=== PATIENT | male | born 1960 | race Caucasian/White ===

== ENCOUNTER 2017-02-27 19:40 | Inpatient (IN) | payer SELFPAY ==
--- NOTE | ~2017-02-27 | HP ---
History And Physical [facility] [address] [place]. [address] NAME: FREDO VELOZ : 58 STATUS : ADM Daija PAT#: [id number] AGE: 56 ADM/REG DATE : 02/27/17 MR#: [id number] REPORT SERV DATE: 02/28/17 DICTATED BY: VANIA BECKETT JR. DATE: 02/28/17 REPORT STATUS : Draft TRANSCRIBED BY: MODPortillo DATE: 02/28/17 DATE OF ADMISSION: 02/27/2017 CHIEF COMPLAINT: Abdominal pain. HISTORY OF PRESENT ILLNESS: This is a 56-year-old male who presented to the emergency department at [facility] with complaints of 1-day history of abdominal pain. This began in the central abdomen and became localized in the right lower quadrant associated with some fever, nausea, and anorexia. He was seen in the emergency room where he had tenderness in the right lower quadrant and then had a CT scan which demonstrated evidence of appendicitis. He was admitted, given IV antibiotics and IV fluids. He has persistent pain in the right lower quadrant. PAST MEDICAL HISTORY: Remarkable for history of hypertension, hypercholesterolemia. He has had previous tonsillectomy and knee surgery. He has a history of significant GI problems. SOCIAL HISTORY: He is . He does not smoke or drink. FAMILY HISTORY: Remarkable for hypertension. REVIEW OF SYSTEMS: He has had fever. HEENT: Negative. NEUROLOGIC: Negative. SKIN: Negative. RESPIRATORY: Negative. CV: Negative. GI: As above. : Negative. MUSCULOSKELETAL: Negative. ENDOCRINE: Negative. HEMATOLOGIC: Negative. IMMUNOLOGIC: Negative. PSYCHIATRIC: Negative. PHYSICAL EXAMINATION: GENERAL: Exam shows a middle-aged male, who is in mild distress. HEENT: The head and neck exam shows pupils are equal and round. There were no icteric changes. Mucous membranes are dry. NECK: Supple. There is no mass or thyromegaly. LUNGS: Clear bilaterally. CARDIOVASCULAR: Exam shows normal S1, S2 without murmur. ABDOMEN: The abdomen is tender in the right lower quadrant with exquisite tenderness. EXTREMITIES: Show no clubbing, cyanosis, or edema. NEUROLOGIC: Alert and oriented. No focal findings. Appropriate affect. IMPRESSION: Abdominal pain, all findings consistent with acute appendicitis. PLAN: The patient has not improved any with antibiotics and fluids. We will proceed with laparoscopic appendectomy today. Details of risks and procedure have been discussed. The History And Physical [facility] [address] [place] [id number] NAME: FREDO VELOZ : 58 STATUS : ADM Daija PAT#: [id number] AGE: 56 ADM/REG DATE : 02/27/17 MR#: [id number] REPORT SERV DATE: 02/28/17 DICTATED BY: VANIA BECKETT JR. DATE: 02/28/17 REPORT STATUS : Draft TRANSCRIBED BY: ANETTEL DATE: 02/28/17 patient's family understand and agree. MIHAI/DRAKE Vania Beckett Jr., M.D. / [id number] CC: Vania Beckett Jr., M.D.
--- NOTE | ~2017-02-27 | OP ---
Record Of Operation [facility] [address] [place]. [address] NAME: FREDO VELOZ : 58 STATUS : ADM Daija PAT#: [id number] AGE: 56 ADM/REG DATE : 02/27/17 MR#: [id number] REPORT SERV DATE: 02/28/17 DICTATED BY: VANIA LAMAS JR. DATE: 02/28/17 REPORT STATUS : Draft TRANSCRIBED BY: MODL DATE: 02/28/17 DATE OF PROCEDURE: 02/28/2017 SURGEON: Vania Lamas M.D. BASKET HAND WEAVER: Chapincito Reese. PROCEDURE: Laparoscopic appendectomy. PREOPERATIVE DIAGNOSIS: Acute appendicitis. POSTOPERATIVE DIAGNOSIS: Acute appendicitis. ANESTHESIA: General. INDICATIONS: The patient has presented with acute abdominal pain localized to the right lower quadrant. Imaging shows appendicitis and appendectomy is indicated. FINDINGS: On laparoscopic examination of the abdomen, there is evidence of acute inflammation to the gallbladder with no evidence of any perforation. There was necrosis near the base. This was removed successfully and no significant findings were encountered. DESCRIPTION OF PROCEDURE: With adequate general anesthesia, the patient was placed in the supine position. Dickens catheter was placed. The abdomen was prepped and draped sterilely. 0.5% Marcaine was used for local infiltration of all trocar sites. An infraumbilical incision was made. The dissection was carried down sharply through the subcutaneous tissues. The fascia and peritoneum were opened. The peritoneal cavity was entered. A balloon-tipped trocar was introduced in the abdomen and the abdomen was insufflated with CO2. The laparoscope was introduced with the above-noted findings. Under direct vision, a 5 mm trocar was placed in the suprapubic and still having 10/12 on the right subcostal. The appendix was identified. Adhesions were taken off and with blunt dissection securing bleeders with electrocautery. Then, the mesoappendix was divided with several firings of the endoscopic MIMI with vascular load. This enabled visualization of the appendix at its base and the cecum was divided with a regular load Endo MIMI. The appendix was placed in an Endopouch and extracted and submitted to Pathology. Additional bleeding was controlled with clips. The area was irrigated thoroughly with saline. There was no evidence of any bleeding and all fluid pockets were aspirated. Trocars were removed under direct vision. The umbilical and right upper quadrant sites were closed at the fascial layer with figure-of eight 0 PDS and all wounds were then closed with dermal Monocryl. Sterile dressings were applied. ESTIMATED BLOOD LOSS FOR THE PROCEDURE: Was 30 mL. JG/MODL Record Of Operation [address] [place]. [address] NAME: FREDO VELOZ : 58 STATUS : ADM Daija PAT#: [id number] AGE: 56 ADM/REG DATE : 02/27/17 MR#: [id number] REPORT SERV DATE: 02/28/17 DICTATED BY: VANIA LAMAS JR. DATE: 02/28/17 REPORT STATUS : Draft TRANSCRIBED BY: DRAKE DATE: 02/28/17 Vania Lamas Jr., M.D. / [id number] CC: Vania Lamas Jr., M.D.
[2017-02-27 20:58] LABS: BASOPHILS 0.1 %; BASOPHILS ABSOLUTE 0.01 10/3/uL (0.0-0.16); EOSINOPHILS 0.2 %; EOSINOPHILS ABSOLUTE 0.02 10/3/uL (0.0-0.53); ER CBC TAT 0 Hrs 07 Mins; HEMATOCRIT 45.7 % (40.0-51.0); HEMOGLOBIN 15.7 g/dL (13.6-17.8); IMMATURE GRANULOCYTES 0.1 %; IMMATURE GRANULOCYTES ABSOLUTE 0.01 10/3/uL (0.0-0.11); LYMPHOCYTES 8.2 %; LYMPHOCYTES ABSOLUTE 0.82 10/3/uL (0.67-4.30); MANUAL DIFF NO %; MEAN CORPUS HGB CONC 34.4 g/dL (32.0-36.0); MEAN CORPUSCULAR HEMOGLOB 32.8 pg (26.0-34.0); MEAN CORPUSCULAR VOLUME 95.6 fL (80-100); MEAN PLATELET VOLUME 9.7 fL (9.2-13.0); MONOCYTES 1.7 %; MONOCYTES ABSOLUTE 0.17 10/3/uL (0.21-1.20); NEUTROPHILS 89.7 %; PLATELET COUNT 247 10/3/uL (150-400); RBC DISTRIBUTION WIDTH 12.5 % (12.0-16.0); RED CELL COUNT 4.78 10/6/uL (4.7-6.1)
[2017-02-27 21:04] LABS: ASCORBIC ACID (UR NOT ORDER) NEG (NEG); BILIRUBIN, URINE NEGATIVE (NEG); ER URINALYSIS TAT 0 Hrs 13 Mins; KETONE, URINE TRACE MG/DL (NEG); LEUKOCYTE ESTERASE(NOT OR NEG (NEG); NITRITE (URINE) NEG (NEG); WBC (NOT ORDERED) (RFLEX) < 1 (0-5)
[2017-02-27 21:14] LABS: A/G RATIO 1.4 (0.7-1.9); ALBUMIN 4.3 G/DL (3.5-5.0); ALKALINE PHOSPHATASE 67 U/L (45-117); BUN (BLOOD UREA NITROGEN) 13 MG/DL (6-23); CHLORIDE, SERUM 103 MMOL/L (96-112); CO2 (CARBON DIOXIDE) 29 MMOL/L (24-34); CREATININE 0.94 MG/DL (0.70-1.30); GFR AFRICAN AMERICAN 104 ML/MIN (>=60); GFR NON AFRICAN AMERICAN 90 ML/MIN (>=60); GLOBULIN 3.1 G/DL (2.5-4.1); GLUCOSE, SERUM 117 MG/DL (60-99); SGOT(AST) 18 U/L (5-40); SGPT(ALT) 29 U/L (5-65); SODIUM, SERUM 137 MMOL/L (135-148); TOTAL BILIRUBIN 2.5 MG/DL (0-1.2); TOTAL PROTEIN 7.4 G/DL (6.0-8.5)
[2017-02-28] MEDS ORDERED: PRAVACHOL40 MG PO (01:14)
[2017-02-28] MEDS ORDERED: ASAB PO (01:14)
[2017-02-28] MEDS ORDERED: COZ50 PO (01:14)
[2017-02-28] MEDS ORDERED: VISINE-A EYE AL15 ML OPH (01:15)
[2017-02-28] MEDS ORDERED: NEXIUM20 M1 PO (01:16)
[2017-02-28] MEDS ORDERED: VITAMIN D31000 UNIT PO (01:16)
[2017-03-01 07:26] LABS: BASOPHILS 0.2 %; BASOPHILS ABSOLUTE 0.01 10/3/uL (0.0-0.16); EOSINOPHILS 0 %; HEMOGLOBIN 12.7 g/dL (13.6-17.8); IMMATURE GRANULOCYTES 0.2 %; IMMATURE GRANULOCYTES ABSOLUTE 0.01 10/3/uL (0.0-0.11); LYMPHOCYTES 12.9 %; LYMPHOCYTES ABSOLUTE 0.82 10/3/uL (0.67-4.30); MEAN CORPUS HGB CONC 33.5 g/dL (32.0-36.0); MEAN CORPUSCULAR HEMOGLOB 32.8 pg (26.0-34.0); MEAN CORPUSCULAR VOLUME 97.9 fL (80-100); MEAN PLATELET VOLUME 9.6 fL (9.2-13.0); MONOCYTES 12.1 %; MONOCYTES ABSOLUTE 0.77 10/3/uL (0.21-1.20); NEUTROPHILS 74.6 %; NEUTROPHILS ABSOLUTE 4.74 10/3/uL (2.02-8.40); PLATELET COUNT 202 10/3/uL (150-400); RBC DISTRIBUTION WIDTH 12.8 % (12.0-16.0); RED CELL COUNT 3.87 10/6/uL (4.7-6.1); WHITE BLOOD CELLS 6.4 10/3/uL (4.5-10.5)
[2017-03-01 07:29] LABS: HEMATOCRIT 37.9 % (40.0-51.0); MANUAL DIFF NO %
[2017-03-01 07:34] LABS: BUN (BLOOD UREA NITROGEN) 14 MG/DL (6-23); CALCIUM, SERUM 8.6 MG/DL (8.5-10.4); CHLORIDE, SERUM 107 MMOL/L (96-112); CO2 (CARBON DIOXIDE) 29 MMOL/L (24-34); CREATININE 0.91 MG/DL (0.70-1.30); GFR AFRICAN AMERICAN 108 ML/MIN (>=60); GFR NON AFRICAN AMERICAN 93 ML/MIN (>=60); GLUCOSE, SERUM 122 MG/DL (60-99); PHOSPHORUS, SERUM 2.7 MG/DL (2.5-4.5); POTASSIUM, SERUM 4.1 MMOL/L (3.5-5.3); SGOT(AST) 15 U/L (5-40); SGPT(ALT) 21 U/L (5-65); SODIUM, SERUM 142 MMOL/L (135-148)
[2017-03-01 07:35] LABS: ALKALINE PHOSPHATASE 47 U/L (45-117); GLOBULIN 2.9 G/DL (2.5-4.1); TOTAL BILIRUBIN 1.1 MG/DL (0-1.2); TOTAL PROTEIN 5.9 G/DL (6.0-8.5)
[2017-03-01] MEDS ORDERED: PCET PO (13:44)
== END 2017-03-01 14:12 | disposition home or self-care (01) | DRG 343 ==
LOC: ER 19:40 → 5SO 23:59
PROVIDERS: Emergency Medicine; Specialist
PROC: 0DTJ4ZZ Resection of Appendix, Percutaneous Endoscopic Approach (ICD-10-PCS; principal; 2017-02-27)
DX: K35.80 Unspecified acute appendicitis (principal); I10 Essential (primary) hypertension; E78.00 Pure hypercholesterolemia, unspecified; Z82.49 Family history of ischemic heart disease and other diseases of the circulatory system
CPT/HCPCS: 74176; 80053; 81001; 83690; 83735; 84100; 85025; 88304; 93005; 99285; A9270-GY; J0330; J0690; J1170; J1885; J1956; J2250; J2270; J2405; J2550; J2710; J3010